=== PATIENT | female | born 1940 | race Caucasian/White ===

== ENCOUNTER 2017-12-23 22:31 | Emergency (ER) | payer OTHER ==
[~2017-12-23] VITALS: Ht 154.9 cm; Wt 64.9 kg
[2017-12-23 22:51] VITALS: Ht 154.9 cm; Wt 64.9 kg
[2017-12-23 23:46] LABS: BASOPHIL % 0 % (0-2); PLATELET COUNT 438 x10^3mcL (130-400); RED CELL DISTRIBUTION WIDTH 18.1 % (11.5-14.5)
[2017-12-23 23:54] LABS: UA SPECIFIC GRAVITY <=1.005 (1.005-1.035); microscopic required? YES; urine erythrocyte TRACE (NEGATIVE)
[2017-12-23 23:55] LABS: CALCIUM 8.8 mg/dL (8.5-10.1); CARBON DIOXIDE 25.1 mmol/L (21-32); CHLORIDE SERUM 106 mmol/L (98-107); CREATININE SERUM 0.8 mg/dL (0.6-1.0); GLUCOSE SERUM 129 mg/dL (74-106); POTASSIUM SERUM 3.8 mmol/L (3.5-5.1); SODIUM SERUM 142 mmol/L (136-145)
[2017-12-24] LABS: ALKALINE PHOSPHATASE 81 U/L (46-116); AST/SGOT 15 U/L (15-37); BILIRUBIN TOTAL 0.3 mg/dL (0.20-1.00)
[2017-12-24 00:04] LABS: ALBUMIN 3.1 g/dL (3.4-5.0)
[2017-12-24 00:07] LABS: AMPHETAMINE QUAL UR NONE DETECTED (See below)
[2017-12-24 00:54] LABS: ALT/SGPT 14 U/L (14-59)
[2017-12-24 04:36] LABS: FREE T4 1.63 ng/dL (0.76-1.46)
[2017-12-24 12:16] VITALS: BP 141/63
== END 2017-12-24 12:16 | disposition short-term general hospital (02) ==
LOC: ED 22:31
PROVIDERS: Emergency Medicine
DX: R45.851 Suicidal ideations (principal); F32.9 Major depressive disorder, single episode, unspecified; M06.9 Rheumatoid arthritis, unspecified; G89.29 Other chronic pain; Z88.1 Allergy status to other antibiotic agents
CPT/HCPCS: 36415; 84439; G0480